=== PATIENT | female | born 1990 | race Two or more races ===

== ENCOUNTER 2017-06-28 08:45 | Emergency (ER) | payer BC, MEDICAID ==
[~2017-06-28] VITALS: Ht 157.5 cm; Wt 90.7 kg
[2017-06-28 09:17] VITALS: BP 123/87
== END 2017-06-28 09:47 | disposition home or self-care (01) ==
LOC: ER 08:45
DX: H10.32 Unspecified acute conjunctivitis, left eye (principal)

== ENCOUNTER 2017-07-01 08:31 | Emergency (ER) | payer MEDICAID ==
[~2017-07-01] VITALS: Ht 157.5 cm; Wt 90.7 kg
[2017-07-01 09:41] VITALS: BP 122/72
== END 2017-07-01 10:18 | disposition home or self-care (01) ==
LOC: ER 08:31
DX: H10.9 Unspecified conjunctivitis (principal)